=== PATIENT | female | born 1950 | race Caucasian/White ===

== ENCOUNTER → 2020-08-20 17:25 | Outpatient (CLI) | payer MEDICARE, OTHER, SELFPAY ==
[2014-10-21 16:26] VITALS: BMI 20.4
[2020-08-20 17:38] LABS: Bacteria 0 SEEN /hpf (None Seen); Mucous, Urine 0 SEEN /hpf (<or=2+); Red Blood Cells-Urine 0 SEEN /hpf (0-5)
[2020-08-20 18:00] LABS: Absolute Lymphocyte Count 1.37 X10^3/uL (0.83-4.51); Basophil# 0.05 X10^3/uL; Basophil% 0.8 % (0-1); Eosinophil# 0.54 X10^3/uL; Eosinophils% 8.2 % (0-5); Hematocrit 39.3 % (37-47); Hemoglobin 13.4 g/dL (12.0-15.0); Lymphocyte # 1.37 X10^3/ul (4.0); Lymphocyte % 20.7 % (19-41); Mean Corp Hgb Conc 34.1 g/dL (32-36); Mean Corpuscular Hgb 32.6 pg (27.0-32.0); Mean Corpuscular Volume 95.6 fL (81-99); Mean Platelet Vol. 9.2 fl (6.2-12.0); Monocyte# 0.63 X10^3/uL; Monocyte% 9.5 % (0-10); NRBC Flagged by Analyzer 0 % (0-5); Neutrophil % 60.5 % (47-70); Platelet Count 426 K/mm3 (150-450); RBC Distribution Width CV 11.3 % (11.6-14.6); RBC Distribution Width SD 39.4 fl (35.1-43.9); Red Blood Count 4.11 M/mm3 (4.2-5.4); White Blood Count 6.6 K/mm3 (4.4-11.0)
[2020-08-20 18:06] LABS: Color, Urine Yellow (Yellow); Glucose, Dipstick Normal (Normal); Ketone-Dipstick Negative (Negative); Leukocyte Esterase-Dipstick 25 /ul (Negative); Nitrite-Dipstick Negative (Negative); Occult Blood-Urine Negative /ul (Negative); Protein-Dipstick Negative (Negative); Urine Bilirubin Dipstick Negative (Negative); Urine Clarity Clear (Clear); Urine Urobilinogen Normal (Normal); Urine pH 6.5 (5.0 - 8.0)
[2020-08-20 18:28] LABS: White Blood Cells 0-5 SEEN /hpf (0-5)
[2020-08-20 18:29] LABS: Squamous Epithelial Cells - UA 0-5 SEEN /hpf (5-10)
[2020-08-20 18:42] LABS: ALB/GLOB Ratio 1.2 RATIO (0.9-2.4); AST(SGOT) 9 U/L (15-37); Alanine Aminotransfer ALT/SGPT 25 U/L (13-56); Albumin, Serum 4.4 g/dL (3.2-5.0); Alkaline Phosphatase 80 U/L (45-117); Anion Gap 5 (5-15); BUN 14 mg/dL (7-18); BUN/Creat Ratio 10.3 RATIO (10-20); Calcium,Total 9.9 mg/dL (8.5-10.1); Chloride 103 mmol/L (98-107); Creatinine, Serum 1.36 mg/dL (0.55-1.02); EST Glomerular Filtration Rate 41 mL/min (>60); Est Glom Filt Rate - Afr Amer 49 mL/min (>60); Globulin 3.6 g/dL (2.2-4.2); Glucose 115 mg/dL (74-106); Potassium 3.9 mmol/L (3.5-5.1); Sodium Level 138 mmol/L (136-145)
[2020-08-20 18:43] LABS: D-Dimer Quantitative (DVT/PE) < 0.27 FEU/ug/m (0.27-0.49)
== END ==
PROVIDERS: PCP Family Medicine; Visit Provider Family Medicine
DX: R10.9 Unspecified abdominal pain (principal); M79.622 Pain in left upper arm
CPT/HCPCS: 36415; 80053; 81001; 85025; 85379; 87086

== ENCOUNTER → 2025-03-28 | Outpatient (CLI) | payer MEDICARE, SELFPAY ==
--- NOTE | 2025-03-28 11:35 | RAD_ITS ---
PROCEDURE: FINGER(S) MIN 2 VIEWS 03/28/2025 REASON FOR EXAM: CYST OF FINGER TECHNIQUE: FINGER(S) MIN 2 VIEWS COMPARISON: None. FINDINGS: No evidence of acute fracture or dislocation. Mild DIP degenerative changes. Soft tissue swelling overlying the dorsal surface of the DIP joint. RAD/Finger(s) Min 2 Views IMPRESSION: Focal soft tissue swelling. Reading Location: [place] [id number]
== END | disposition home or self-care (01) ==
LOC: RAD 11:27
PROVIDERS: PCP Family Medicine; Referring Provider Surgery Plastic and Reconstructive Surgery; Visit Provider Surgery Plastic and Reconstructive Surgery
DX: M71.341 Other bursal cyst, right hand (principal)
CPT/HCPCS: 73140

== ENCOUNTER 2025-04-03 12:39 | Day surgery (SDC) | payer MEDICARE, SELFPAY ==
[2025-04-03] VITALS (9 sets, daily range): BP systolic 106–161; BP diastolic 58–79; PULSE 59–73; RESP 16; TEMP 36.4–36.9; O2SAT 97–98; BMI 22.1
[2025-04-03] MEDS: Lactated Ringers 1,000 ML 15 ML IV (13:30)
--- NOTE | 2025-04-03 13:45 | PCM.HP.STD ---
HPI - General HPI Narrative The patient is a 75-year-old female presenting with a mucous cyst on the left index finger. The cyst has been present for a while and does not cause pain, but the patient finds it aesthetically displeasing. The patient attempted to drain the cyst using a razor blade, but it was ineffective. 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 There is a history of a previous attempt to drain the cyst by Dr. Joshua, which did not involve removing any bone spurs. The patient has a history of essential hypertension and is currently on medication for it. She denies having diabetes or smoking habits and considers herself generally healthy. ROS: - Musculoskeletal: Reports a mucous cyst on the left index finger, turns red after work. - Cardiovascular: Denies chest pain or palpitations. - Endocrine: Denies diabetes. - General: Reports being generally healthy. Attestation: Documentation on this patient encounter was supported using ambient scribe technology/ voice AI technology. The patient consented to recording for the purpose of documenting the encounter. Provider reviewed content of the generated note prior to signature. Current Encounter (DATE OF SURGERY H&P UPDATE): I saw and examined the patient this morning in pre-operative holding. We discussed risks and benefits of today's surgery and they would like to proceed. NO CHANGE in health history since last seen and evaluated. Ready to proceed with surgery. [facility] Medical History Wears glasses High cholesterol Former smoker Hypertension Cyst of finger Cancer Arthritis Home Medications ?Medication ?Instructions ?Recorded ?Last Taken ?Type alendronate 70 mg tablet 70 mg PO QWEEK 03/28/25 Unknown History amlodipine 2.5 mg tablet 2.5 mg PO QDAY 03/28/25 04/02/25 History atorvastatin 20 mg tablet 20 mg PO QHS cholesterol 03/28/25 04/02/25 History Allergy/AdvReac Type Severity Reaction Status Date / Time doxycycline Allergy Angioedema Verified 04/03/25 13:16 halobetasol Allergy Shortness Verified 04/03/25 13:16 of breath latex Allergy Hives Verified 04/03/25 13:16 prednisone Allergy Angioedema Verified 04/03/25 13:16 Sulfa (Sulfonamide Allergy Angioedema Verified 04/03/25 13:16 Antibiotics) Social History Smoking Status: Former smoker Vital Signs Vital Signs Vital Signs: 04/03/25 13:17 04/03/25 13:17 Temperature 98.5 F Temperature Source Temporal Pulse Rate 68 Respiratory Rate 16 Respiratory Pattern Normal Blood Pressure 161/73 H Blood Pressure Mean 102 Blood Pressure Source Monitor Blood Pressure Position Semi-Fowlers Blood Pressure Location Left Arm Pulse Ox 98 Oxygen Delivery Method Room Air Weight Weight: 116 lb 13.52 oz Body Mass Index (BMI) 22.1 Physical Exam Narrative L Upper Extremity Inspection: Left index finger mucus cyst present, transilluminates . The index finger is in resting ulnar deviation at the DIP joint. Palpation: No DIP collateral ligament instability, no mallet on the left index. Motor: Able to bend and extend all MP, PIP, and DIP joints. Sensory: Intact to light touch on the radial and ulnar borders. Vascular: Finger tips are warm and well perfused with greater than 2 second capillary refill. Assessment & Plan Assessment/Plan (1) Mucous cyst of finger: PLAN: Plan Assessment and Plan The patient is a 75-year-old female with a history of essential hypertension presenting with a mucous cyst on the left index finger. The cyst has been present for a while, is not painful, but is aesthetically displeasing to the patient. The patient attempted self-drainage without success, and previous drainage by Dr. Joshua did not involve bone spur removal, which may be necessary to prevent recurrence. 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 She is generally healthy, denies diabetes and smoking, and is on medication for hypertension. 1. Mucous Cyst Of The Left Index Finger The plan is to perform an x-ray to assess for any bony spurs that may need to be addressed surgically to prevent recurrence of the mucous cyst. Surgical intervention will involve making an incision over the joint to remove the bony spurs and the stalk of the cyst while keeping the skin intact. The patient will need to keep the index finger in extension for a month post-surgery to ensure proper healing. The patient will be sedated during the procedure to minimize discomfort. 2. Essential Hypertension The patient is currently on medication for hypertension and should continue with her current regimen. I talked to the patient extensively about the risks of surgery, including bleeding, infection, damage to surrounding structures, poor scaring, surgical site dehiscence and wound formation, need for wound care, need for repeat operations, failure to obtain the desired result, and the risks of anesthesia. The benefits and alternatives of this surgery were also discussed. All of their questions were answered, and they agreed to proceed with surgery. Plan for excision of mucous cyst under local. Discussed likely incision over the DIP joint with debridement of the joint and cyst stalk in anticipation of involution of the cyst (will likely keep cyst in place if skin still appears healthy for this option). Otherwise we will excise and rotate rotation flap and discussed with the patient today risks of flap failure and reasons why we will try option 1 if possible. CPT codes for insurance prior authorization are as follows: 91650, [id number] INTERVAL H&P PLAN, DATE OF SURGERY: We will proceed with surgery today. Further discussed above noted risks, as well as risks to the joint (collateral ligaments) and extensor tendon/mechanism. Discussed debridement. Discussed post operative splinting. Discussed cyst involution over time. Patient in agreement and would like to proceed. I marked the left index finger
--- NOTE | 2025-04-03 13:49 | PRE.ANES_ITS ---
ASA Classification* ASA Classification ASA Classification: 2 Assessment & Plan Anesthesia* Anesthesia Assessment Anesthesia Assessment: Discussed sedation and/or anesthesia options, risks, benefits, and alternatives with patient/parents/legal guardian/POA. Questions invited. The patient/parents/legal guardian/POA seems to understand and agrees to proceed with anesthesia plan. Reviewed the physical assessment, medical history, allergy history and patient home medications list prior to surgery/procedure/anesthetic and documented any changes. Performed airway and anesthesia risk assessments. Anesthesia Type Anesthesia Type: MAC History Source History Obtained from:: Patient and Chart Anesthesia Focused Assessment* Temperature: 98.5 F Pulse Rate: 68 Blood Pressure: 161/73 Respiratory Rate: 16 Pulse Ox: 98 Oxygen Delivery Method: Room Air Airway Assessment Mouth opens: >3 cm Mallampati Score: II Teeth Condition: Dentures, Lower and Partial Labs Anesthesia Preop lab: CBC WBC 6.6 K/mm3 (4.4-11.0) 08/20/20 17:36 08/20/20 RBC 4.11 M/mm3 (4.2-5.4) L 08/20/20 17:36 08/20/20 Hgb 13.4 g/dL (12.0-15.0) 08/20/20 17:36 08/20/20 Hct 39.3 % (37-47) 08/20/20 17:36 08/20/20 Plt Count 426 K/mm3 (150-450) 08/20/20 17:36 08/20/20 CHEMISTRY Potassium 3.9 mmol/L (3.5-5.1) 08/20/20 17:36 08/20/20 Sodium 138 mmol/L (136-145) 08/20/20 17:36 08/20/20 BUN 14 mg/dL (7-18) 08/20/20 17:36 08/20/20 Creatinine 1.36 mg/dL (0.55-1.02) H 08/20/20 17:36 Glucose 115 mg/dL (74-106) H 08/20/20 17:36 08/20/20 COAG Pre-Assessment Diagnosis/Proposed Procedure Planned Operative Procedure(s): LEFT INDEX FINGER MUCOUS CYST EXCISION Anesthesia History 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 When Was Last Pacemaker Check QUESTION #4 FULL TEXT: You/Your Family Experience fever (hyperthermia) with Anesthesia Last Oral Intake Last Oral intake: Last Oral Intake NPO since 20:00 04/03/25 13:17 Meds taken in AM with sips of water? Meds patient instructed to take am of surgery PONV PONV - explosive ordnance disposal specialist: PONV - explosive ordnance disposal specialist Female Yes 04/02/25 13:24 HX of Motion Sickness No 04/02/25 13:24 HX of N/V After Surgery No 04/02/25 13:24 Non-Smoker Yes 04/02/25 13:24 Duration of Surgery greater Yes 04/02/25 13:24 than 60 minutes Number of Risk Factors 3 04/02/25 13:24 PONV Score Moderate Risk 04/02/25 13:24 Height & Weight Height & Weight: Anesthesia: Height & Weight Height 5 ft 1 in 04/03/25 13:17 Weight: 53 kg 04/03/25 13:17 Body Mass Index (BMI) 22.1 04/03/25 13:17 Respiratory Assessment Respiratory Assessment - explosive ordnance disposal specialist: Respiratory Tract Infection Hx - explosive ordnance disposal specialist Hx Respiratory Tract Infection No 04/02/25 13:24 STOP Sleep Apnea STOP Sleep Apnea - explosive ordnance disposal specialist: STOP Sleep Apnea - explosive ordnance disposal specialist Hx Hypertension Yes 04/02/25 13:24 Hx Sleep Apnea No 04/02/25 13:24 CPAP BIPAP Do you snore loudly (louder No 04/02/25 13:24 than talking or can be heard Do you often feel tired/ No 04/02/25 13:24 fatigued/ sleepy during daytime? Has anyone observed you stop No 04/02/25 13:24 breathing during sleep? STOP Results Negative 04/02/25 13:24 QUESTION #5 FULL TEXT : Do you snore loudly (louder than talking or can be heard through closed doors)? 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 Specify any problems Hx of Preganancy in last 3 No 04/02/25 13:24 Months Nurse Filling Out Transfusion [email or web address] 04/02/25 13:24 & Questions: Date: 04/02/25 04/02/25 13:24 Time: 13:27 04/02/25 13:24 Patient unable to answer at this time (ie. confused, unrespo /Reproduction History /Reproductive History - explosive ordnance disposal specialist: /Reproductive Hx- explosive ordnance disposal specialist Hx Now Gestational Age (in weeks): EDC: Hx Hx Para Hx Section SAB Active Medications Active Medications: Current Medications Generic Name Dose Route Start Last Admin Trade Name Freq PRN Reason Stop Dose Admin Clindamycin Phosphate 900 mg in 50 mls @ 75 mls/hr 04/03/25 14:30 Cleocin IV 04/03/25 15:09 INTRAOP ONE Lactated Ringer's 1,000 mls @ 15 mls/hr 04/03/25 13:00 04/03/25 13:30 IV 15 mls/hr .Q48H BERTA Administration PFSH Medical History Wears glasses High cholesterol Former smoker Hypertension Cyst of finger Cancer Arthritis Home Medications ?Medication ?Instructions ?Recorded ?Last Taken ?Type alendronate 70 mg tablet 70 mg PO QWEEK 03/28/25 Unkn own History amlodipine 2.5 mg tablet 2.5 mg PO QDAY 03/28/2503/19 5/25 History atorvastatin 20 mg tablet 20 mg PO QHS cholesterol 07/1304/02/25 History Allergy/AdvReac Type Severity Reaction Status Date / Time doxycycline Allergy Angioedema Verified 04/03/25 13:16 halobetasol Allergy Shortness Verified 04/03/25 13:16 of breath latex Allergy Hives Verified 04/03/25 13:16 prednisone Allergy Angioedema Verified 04/03/25 13:16 Sulfa (Sulfonamide Allergy Angioedema Verified 04/03/25 13:16 Antibiotics) Social History Smoking Status: Former smoker Review of Systems (Anesthesia) ROS Narrative System reviewed and no additional complaints, except as documented.
--- NOTE | 2025-04-03 13:49 | PRE.ANES_ITS ---
ASA Classification* ASA Classification ASA Classification: 2 Assessment & Plan Anesthesia* Anesthesia Assessment Anesthesia Assessment: Discussed sedation and/or anesthesia options, risks, benefits, and alternatives with patient/parents/legal guardian/POA. Questions invited. The patient/parents/legal guardian/POA seems to understand and agrees to proceed with anesthesia plan. Reviewed the physical assessment, medical history, allergy history and patient home medications list prior to surgery/procedure/anesthetic and documented any changes. Performed airway and anesthesia risk assessments. Anesthesia Type Anesthesia Type: MAC History Source History Obtained from:: Patient and Chart Anesthesia Focused Assessment* Temperature: 98.5 F Pulse Rate: 68 Blood Pressure: 161/73 Respiratory Rate: 16 Pulse Ox: 98 Oxygen Delivery Method: Room Air Airway Assessment Mouth opens: >3 cm Mallampati Score: II Teeth Condition: Dentures, Lower and Partial Labs Anesthesia Preop lab: CBC WBC 6.6 K/mm3 (4.4-11.0) 08/20/20 17:36 08/20/20 RBC 4.11 M/mm3 (4.2-5.4) L 08/20/20 17:36 08/20/20 Hgb 13.4 g/dL (12.0-15.0) 08/20/20 17:36 08/20/20 Hct 39.3 % (37-47) 08/20/20 17:36 08/20/20 Plt Count 426 K/mm3 (150-450) 08/20/20 17:36 08/20/20 CHEMISTRY Potassium 3.9 mmol/L (3.5-5.1) 08/20/20 17:36 08/20/20 Sodium 138 mmol/L (136-145) 08/20/20 17:36 08/20/20 BUN 14 mg/dL (7-18) 08/20/20 17:36 08/20/20 Creatinine 1.36 mg/dL (0.55-1.02) H 08/20/20 17:36 Glucose 115 mg/dL (74-106) H 08/20/20 17:36 08/20/20 COAG Pre-Assessment Diagnosis/Proposed Procedure Planned Operative Procedure(s): LEFT INDEX FINGER MUCOUS CYST EXCISION Anesthesia History 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 When Was Last Pacemaker Check QUESTION #4 FULL TEXT: You/Your Family Experience fever (hyperthermia) with Anesthesia Last Oral Intake Last Oral intake: Last Oral Intake NPO since 20:00 04/03/25 13:17 Meds taken in AM with sips of water? Meds patient instructed to take am of surgery PONV PONV - dog beautician: PONV - dog beautician Female Yes 04/02/25 13:24 HX of Motion Sickness No 04/02/25 13:24 HX of N/V After Surgery No 04/02/25 13:24 Non-Smoker Yes 04/02/25 13:24 Duration of Surgery greater Yes 04/02/25 13:24 than 60 minutes Number of Risk Factors 3 04/02/25 13:24 PONV Score Moderate Risk 04/02/25 13:24 Height & Weight Height & Weight: Anesthesia: Height & Weight Height 5 ft 1 in 04/03/25 13:17 Weight: 53 kg 04/03/25 13:17 Body Mass Index (BMI) 22.1 04/03/25 13:17 Respiratory Assessment Respiratory Assessment - dog beautician: Respiratory Tract Infection Hx - dog beautician Hx Respiratory Tract Infection No 04/02/25 13:24 STOP Sleep Apnea STOP Sleep Apnea - dog beautician: STOP Sleep Apnea - dog beautician Hx Hypertension Yes 04/02/25 13:24 Hx Sleep Apnea No 04/02/25 13:24 CPAP BIPAP Do you snore loudly (louder No 04/02/25 13:24 than talking or can be heard Do you often feel tired/ No 04/02/25 13:24 fatigued/ sleepy during daytime? Has anyone observed you stop No 04/02/25 13:24 breathing during sleep? STOP Results Negative 04/02/25 13:24 QUESTION #5 FULL TEXT : Do you snore loudly (louder than talking or can be heard through closed doors)? 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 Specify any problems Hx of Preganancy in last 3 No 04/02/25 13:24 Months Nurse Filling Out Transfusion [email or web address] 04/02/25 13:24 & Questions: Date: 04/02/25 04/02/25 13:24 Time: 13:27 04/02/25 13:24 Patient unable to answer at this time (ie. confused, unrespo /Reproduction History /Reproductive History - dog beautician: /Reproductive Hx- dog beautician Hx Now Gestational Age (in weeks): EDC: Hx Hx Para Hx Section SAB Active Medications Active Medications: Current Medications Generic Name Dose Route Start Last Admin Trade Name Freq PRN Reason Stop Dose Admin Clindamycin Phosphate 900 mg in 50 mls @ 75 mls/hr 04/03/25 14:30 Cleocin IV 04/03/25 15:09 INTRAOP ONE Lactated Ringer's 1,000 mls @ 15 mls/hr 04/03/25 13:00 04/03/25 13:30 IV 15 mls/hr .Q48H BERTA Administration PFSH Medical History Wears glasses High cholesterol Former smoker Hypertension Cyst of finger Cancer Arthritis Home Medications ?Medication ?Instructions ?Recorded ?Last Taken ?Type alendronate 70 mg tablet 70 mg PO QWEEK 03/28/25 Unkn own History amlodipine 2.5 mg tablet 2.5 mg PO QDAY 03/28/2503/19 5/25 History atorvastatin 20 mg tablet 20 mg PO QHS cholesterol 07/1304/02/25 History Allergy/AdvReac Type Severity Reaction Status Date / Time doxycycline Allergy Angioedema Verified 04/03/25 13:16 halobetasol Allergy Shortness Verified 04/03/25 13:16 of breath latex Allergy Hives Verified 04/03/25 13:16 prednisone Allergy Angioedema Verified 04/03/25 13:16 Sulfa (Sulfonamide Allergy Angioedema Verified 04/03/25 13:16 Antibiotics) Social History Smoking Status: Former smoker Review of Systems (Anesthesia) ROS Narrative System reviewed and no additional complaints, except as documented.
--- NOTE | 2025-04-03 13:50 | RAD_ITS ---
PROCEDURE: FINGER(S) MIN 2 VIEWS 04/03/2025 REASON FOR EXAM: MUCOUS CYST EXCISION- LEFT RING FINGER TECHNIQUE: Intraoperative fluoroscopic services provided. 3 seconds of fluoroscopy. 0.135 mGy. COMPARISON: Prior radiograph dated March 28, 2025 FINDINGS: Intraoperative fluoroscopic services provided for excision of the cyst. RAD/Finger(s) Min 2 Views IMPRESSION: Intraoperative fluoroscopic services provided for cyst resection. Reading Location: [facility]
--- NOTE | 2025-04-03 13:50 | RAD_ITS ---
PROCEDURE: FINGER(S) MIN 2 VIEWS 04/03/2025 REASON FOR EXAM: MUCOUS CYST EXCISION- LEFT RING FINGER TECHNIQUE: Intraoperative fluoroscopic services provided. 3 seconds of fluoroscopy. 0.135 mGy. COMPARISON: Prior radiograph dated March 28, 2025 FINDINGS: Intraoperative fluoroscopic services provided for excision of the cyst. RAD/Finger(s) Min 2 Views IMPRESSION: Intraoperative fluoroscopic services provided for cyst resection. Reading Location: [facility]
[2025-04-03] MEDS: Lidocaine 1% (20 ml mdv) 20 ML Vial (14:16)
--- NOTE | 2025-04-03 14:30 | CYST_PTH ---
PATIENT: DANO RADER LOC: [facility] [place] U#:[id number] AGE/SX: 75/F ROOM: RE04/03/[address]: Dr. Rahat Egan MD : 1950 BED: DIS: 04/03/2025 SPEC #: [id number] RECD: 04/03/25 15:47 STATUS: DARSHANA RICARDO #: [id number] TEMO: 04/03/25 14:[address]: Rahat Egan DEPT: SURGICAL PATHOLOGY RECD BY: Tianna Noble ENTERED: 04/04/25 10:09 SP TYPE: Cyst OTHR DR: Dr. Alfred Savage MD Tissues: CYST Procedures: Surgery Specimen Level III HEADER OPERATION: Left index finger mucous cyst excision PRE-OP DIAGNOSIS: Mucous cyst of finger TISSUE SUBMITTED: Mucous cyst of left index finger MICROSCOPIC DIAGNOSIS A. Finger, left, index, mucous cyst, excision: - Fibrous tissue with cystic space consistent with ganglion cyst. MICROSCOPIC DESCRIPTION Slides are reviewed. GROSS DESCRIPTION A. Received in formalin labeled with the patient's name and date of . Designated as mucous cyst left index finger is a 0.5 x 0.4 x 0.1 cm aggregate of a [id number] rubbery tissue. Entirely submitted in 1 cassette. [place] 04/04/2025 CPT: 44340
--- NOTE | 2025-04-03 14:30 | CYST_PTH ---
PATIENT: DANO RADER LOC: [facility] [place] U#:[id number] AGE/SX: 75/F ROOM: RE04/03/[address]: Dr. Rahat Egan MD : 1950 BED: DIS: 04/03/2025 SPEC #: [id number] RECD: 04/03/25 15:47 STATUS: DARSHANA RICARDO #: [id number] TEMO: 04/03/25 14:[address]: Rahat Egan DEPT: SURGICAL PATHOLOGY RECD BY: Tianna Noble ENTERED: 04/04/25 10:09 SP TYPE: Cyst OTHR DR: Dr. Alfred Savage MD Tissues: CYST Procedures: Surgery Specimen Level III HEADER OPERATION: Left index finger mucous cyst excision PRE-OP DIAGNOSIS: Mucous cyst of finger TISSUE SUBMITTED: Mucous cyst of left index finger MICROSCOPIC DIAGNOSIS A. Finger, left, index, mucous cyst, excision: - Fibrous tissue with cystic space consistent with ganglion cyst. MICROSCOPIC DESCRIPTION Slides are reviewed. GROSS DESCRIPTION A. Received in formalin labeled with the patient's name and date of . Designated as mucous cyst left index finger is a 0.5 x 0.4 x 0.1 cm aggregate of a [id number] rubbery tissue. Entirely submitted in 1 cassette. [place] 04/04/2025 CPT: 78270
--- NOTE | 2025-04-03 14:58 | PCM.POST.ANE ---
Anesthesia: Postop Eval I Current Vital Signs Temperature: 97.5 F Pulse Rate: 73 Blood Pressure: 106/59 Respiratory Rate: 16 Pulse Ox: 97 Oxygen Delivery Method: Room Air Assessment Airway patent: Yes Spontaneous unlabored respirations: Yes Mental status: Awake and Calm nausea: No Vomiting: No Anesthesia Complication: No Fluid Hydration Crystalloid volume administer (ml): 200 Total IV fluid infused: 200 Progress Note Anesthesia document: Postop Eval 1 completed: Yes
--- NOTE | 2025-04-03 15:05 | OP.PCM_ITS ---
Operative Report (Standard) Operative Information Date of Procedure: 04/03/25 Pre-Operative Diagnosis: Left index finger mucous cyst Post-Operative Diagnosis: Same Surgery/Procedure Performed: 1) Excision left index finger mucous cyst, CPT: 95825 billing machine operator: Yes Railroad Car Cleaner: Marla Briggs Tasks completed by food and nutrition services assistant: Retracting Type of Anesthesia: MAC/Supplemental (7 cc of 50/50 mixture of 0.25% Marcaine and 1% lidocaine) RN Documented Start/Stop Times: Operation Date: 04/03/25 14:30 Case Time Into Pre-Op 04/03/25 12:55 Out of Pre-Op 04/03/25 13:55 Anesthesia Start 04/03/25 13:57 Into Room 04/03/25 13:57 Procedure Start 04/03/25 14:16 Procedure End 04/03/25 14:39 Anesthesia End 04/03/25 14:45 Out of Room 04/03/25 14:45 Into Recovery 04/03/25 14:47 Procedure Start Time: 14:16 Procedure Stop Time: 14:39 Select all DRAINS/GRAFTS/IMPLANTS that apply: None Estimated Blood Loss: minimal Specimen collected: Yes Description of specimen(s) removed: Cyst stalk Description of surgery: Indications: Patient is a delightful 75-year-old female with a left index finger mucous cyst. She understood the risks, benefits, and alternatives to removal and elected to proceed. Procedure details: Patient was correctly identified in preoperative holding and the incision was marked on the left index finger. She was taken back to the operating room where she was administered sedation and local block as noted above. She was prepped and draped in sterile fashion and a proper timeout was performed. The mini C arm was used to identify the underlying DIP joint arthritis and osteophytes and a photograph was saved. A turnicot was applied and a 15 blade scalpel was used to make a direct incision dorsally over the joint proximal to the cyst. Dissection was carried out with tenotomy scissors and bipolar electrocautery down to the terminal slip and the dorsal aspect of the DIP joint. Incision was made to the terminal slip between the collateral ligaments and the terminal slip, and a curette was used to debride osteophytes in this location as well as osteophytes underneath the terminal slip. There were several osteophytes. The cyst stalk was then debrided distally to the incision and the cyst involuted. The mucous was removed and the area was washed out with copious amounts of normal saline. The cyst stalk base was cauterized with bipolar electrocautery. The turnicot was removed and hemostasis was obtained again with bipolar electrocautery. The wound was then closed with vertical mattress nylon suture. Xeroform Min and Coban as well as a AlumaFoam DIP joint extension splint were applied. Patient was awakened taken the PACU in stable condition. She tolerated the procedure well. Surgical Findings: Cyst stalk and underlying osteophytes consistent with a mucous cyst Complications Complications: No Admit VTE Documentation VTE Mechan Device Prophylaxis: SCD's
--- NOTE | 2025-04-03 16:03 | POSTOPAN2_ITS ---
Anesthesia Postop Eval I Sum Postop Eval Completion status Anesthesia document: Postop Eval 1 completed: Yes Anesthesia Postop Eval I Summary Anesthesia Postop Eval I Summary: Anesthesia Postop Eval I: Assessment Summary Airway patent Yes 04/03/25 14:59 SATURATOR OPERATOR.[email or web address] Spontaneous unlabored Yes 04/03/25 14:59 SATURATOR OPERATOR.GDOTT respirations Mental status Awake,Calm 04/03/25 14:59 SATURATOR OPERATOR.GDOTT nausea No 04/03/25 14:59 SATURATOR OPERATOR.GDOTT Vomiting No 04/03/25 14:59 SATURATOR OPERATOR.GDOTT Anesthesia Postop Eval I: Fluid Summary Crystalloid volume administer 200 04/03/25 14:59 SATURATOR OPERATOR.GDOTT (ml) Colloids volume administered ( ml) Blood Product volume administered (ml) Total IV fluid infused 200 04/03/25 14:59 SATURATOR OPERATOR.GDOTT Anesthesia Postop Eval I: Summary Notes Anesthesia Complication No 04/03/25 14:59 SATURATOR OPERATOR.GDOTT Anesthesia Complication Comment: Post-operative progress note Anesthesia: Postop Eval II Evaluation Mental status: Awake and Calm Pain Level: 1 nausea: No Vomiting: No Complications Anesthesia Complication: No
--- NOTE | 2025-04-03 16:03 | POSTOPAN2_ITS ---
Anesthesia Postop Eval I Sum Postop Eval Completion status Anesthesia document: Postop Eval 1 completed: Yes Anesthesia Postop Eval I Summary Anesthesia Postop Eval I Summary: Anesthesia Postop Eval I: Assessment Summary Airway patent Yes 04/03/25 14:59 SALES DEPARTMENT MANAGER.[email or web address] Spontaneous unlabored Yes 04/03/25 14:59 SALES DEPARTMENT MANAGER.GDOTT respirations Mental status Awake,Calm 04/03/25 14:59 SALES DEPARTMENT MANAGER.GDOTT nausea No 04/03/25 14:59 SALES DEPARTMENT MANAGER.GDOTT Vomiting No 04/03/25 14:59 SALES DEPARTMENT MANAGER.GDOTT Anesthesia Postop Eval I: Fluid Summary Crystalloid volume administer 200 04/03/25 14:59 SALES DEPARTMENT MANAGER.GDOTT (ml) Colloids volume administered ( ml) Blood Product volume administered (ml) Total IV fluid infused 200 04/03/25 14:59 SALES DEPARTMENT MANAGER.GDOTT Anesthesia Postop Eval I: Summary Notes Anesthesia Complication No 04/03/25 14:59 SALES DEPARTMENT MANAGER.GDOTT Anesthesia Complication Comment: Post-operative progress note Anesthesia: Postop Eval II Evaluation Mental status: Awake and Calm Pain Level: 1 nausea: No Vomiting: No Complications Anesthesia Complication: No
--- NOTE | 2025-04-03 16:03 | PCM.POSTANE2 ---
Anesthesia Postop Eval I Sum Postop Eval Completion status Anesthesia document: Postop Eval 1 completed: Yes Anesthesia Postop Eval I Summary Anesthesia Postop Eval I Summary: Anesthesia Postop Eval I: Assessment Summary Airway patent Yes 04/03/25 14:59 ACCOUNT MANAGER RELIEF.[email or web address] Spontaneous unlabored Yes 04/03/25 14:59 ACCOUNT MANAGER RELIEF.GDOTT respirations Mental status Awake,Calm 04/03/25 14:59 ACCOUNT MANAGER RELIEF.GDOTT nausea No 04/03/25 14:59 ACCOUNT MANAGER RELIEF.GDOTT Vomiting No 04/03/25 14:59 ACCOUNT MANAGER RELIEF.GDOTT Anesthesia Postop Eval I: Fluid Summary Crystalloid volume administer 200 04/03/25 14:59 ACCOUNT MANAGER RELIEF.GDOTT (ml) Colloids volume administered ( ml) Blood Product volume administered (ml) Total IV fluid infused 200 04/03/25 14:59 ACCOUNT MANAGER RELIEF.GDOTT Anesthesia Postop Eval I: Summary Notes Anesthesia Complication No 04/03/25 14:59 ACCOUNT MANAGER RELIEF.GDOTT Anesthesia Complication Comment: Post-operative progress note Anesthesia: Postop Eval II Evaluation Mental status: Awake and Calm Pain Level: 1 nausea: No Vomiting: No Complications Anesthesia Complication: No
--- NOTE | 2025-04-03 16:03 | PCM.POSTANE2 ---
Anesthesia Postop Eval I Sum Postop Eval Completion status Anesthesia document: Postop Eval 1 completed: Yes Anesthesia Postop Eval I Summary Anesthesia Postop Eval I Summary: Anesthesia Postop Eval I: Assessment Summary Airway patent Yes 04/03/25 14:59 [email or web address] Spontaneous unlabored Yes 04/03/25 14:59 [email or web address].GDOTT respirations Mental status Awake,Calm 04/03/25 14:59 [email or web address].GDOTT nausea No 04/03/25 14:59 WAXER.GDOTT Vomiting No 04/03/25 14:59 [email or web address].GDOTT Anesthesia Postop Eval I: Fluid Summary Crystalloid volume administer 200 04/03/25 14:59 [email or web address].GDOTT (ml) Colloids volume administered ( ml) Blood Product volume administered (ml) Total IV fluid infused 200 04/03/25 14:59 [email or web address].GDOTT Anesthesia Postop Eval I: Summary Notes Anesthesia Complication No 04/03/25 14:59 [email or web address].GDOTT Anesthesia Complication Comment: Post-operative progress note Anesthesia: Postop Eval II Evaluation Mental status: Awake and Calm Pain Level: 1 nausea: No Vomiting: No Complications Anesthesia Complication: No
== END 2025-04-03 16:20 | disposition home or self-care (01) ==
LOC: SDC 12:42 → AC 12:44
PROVIDERS: PCP Family Medicine; Referring Provider Surgery Plastic and Reconstructive Surgery; Visit Provider Surgery Plastic and Reconstructive Surgery
PROC: (CPT 26055; principal; 2025-04-03 14:15)
DX: M71.342 Other bursal cyst, left hand (principal); M25.742 Osteophyte, left hand; I10 Essential (primary) hypertension; E78.00 Pure hypercholesterolemia, unspecified; Z79.899 Other long term (current) drug therapy; Z87.891 Personal history of nicotine dependence
CPT/HCPCS: 26160; 01810; 73140; 76000; 88304; J2405